=== PATIENT | female | born 1970 | race Caucasian/White ===

== ENCOUNTER 2017-11-19 13:33 | Inpatient (IN) | payer BC ==
[~2017-11-19] VITALS: Ht 165.1 cm; Wt 118.5 kg
[~2017-11-19 13:33] MED LIST: ACETAMINOPHEN-1 EAC1 PO; ALOE VERA1 EACH PO; ALPHA LIPOIC A100 MG PO; Bumex PO; COUMADIN,JANTO7.5 MG PO; DIGESTIVE EN1 TABLET PO; Ecotrin PO; HYDROCHLOROTHIA25 MG PO; HYOSCYAMINE0.375 MG PO; Hydrodiuril,Oretic,E PO; LOVENOX150 MG/1 M SC; NEXIUM20 MG PO; VITAMIN B6 PO; Zantac PO; [UNRECOGNIZED DRUG - OTHER] PO
[2017-11-19 14:58] LABS: HEMATOCRIT 42.7 % (36.0-46.0); HEMOGLOBIN 14.2 G/DL (11.9-15.5); MCH 30.8 PG (29.0-34.0); MCHC 33.3 G/DL (30.0-36.0); MCV 92.6 FL (83-99); PLATELET COUNT 270 K/uL (156-360); RBC DIS.WIDTH-CV 12.9 % (11.8-14.6); RBC DIS.WIDTH-SD 43.6 % (39-53); RED BLOOD COUNT 4.61 M/uL (3.80-5.20); WHITE BLOOD COUNT 12.1 K/uL (4.1-10.2)
[2017-11-19 15:10] LABS: ALBUMIN 3.7 g/dL (3.2-4.8); CHLORIDE 107 mEq/L (99-109); POTASSIUM 4.1 mEq/L (3.7-5.4); SODIUM 139 mEq/L (136-147)
[2017-11-19 15:13] LABS: GLUCOSE 93 mg/dL (70-99)
[2017-11-19 15:15] LABS: TOTAL BILIRUBIN 0.3 mg/dL (0.0-1.0)
[2017-11-19 15:16] LABS: ALKALINE PHOSPHATASE 67 IU/L (3-129); CREATININE 0.8 mg/dL (0.6-1.3); GFR ESTIMATE (CALCULATED) > 59 mL/min/
[2017-11-19 15:17] LABS: UREA NITROGEN (BUN) 16 mg/dL (9-23)
[2017-11-19 15:18] LABS: AST (GOT) 16 IU/L (2-34)
[2017-11-19 15:19] LABS: ALT (GPT) 17 IU/L (3-49)
[2017-11-19 15:20] LABS: LIPASE 12 U/L (1.0-51.0)
[2017-11-19 15:27] LABS: QUANTITATIVE HCG < 4.0 MIU/ML
[2017-11-19 15:27] LABS: APPEARANCE CLEAR ((CLEAR)); BILIRUBIN NEGATIVE; BLOOD NEGATIVE; COLOR STRAW ((YELLOW)); GLUCOSE (STRIP) NEGATIVE; KETONES NEGATIVE; LEUKOCYTES NEGATIVE; NITRITE NEGATIVE; PROTEIN (STRIP) NEGATIVE; SPECIFIC GRAVITY 1.009 (1.000-1.030); UCUL ADDED? NO; UROBILINOGEN 0.2 MG/DL (0.2-1.0)
[2017-11-19 18:34] LABS: PTT 27.7 SEC (25-37)
[2017-11-19] MEDS ORDERED: BUMETANIDE1 MG PO (18:42)
[2017-11-20] VITALS (7 sets, daily range): BP systolic 124–138; BP diastolic 9–90
[2017-11-20 05:38] LABS: HEMATOCRIT 40.2 % (36.0-46.0); HEMOGLOBIN 13.2 G/DL (11.9-15.5); MCH 30.8 PG (29.0-34.0); MCHC 32.8 G/DL (30.0-36.0); MCV 93.7 FL (83-99); PLATELET COUNT 265 K/uL (156-360); RBC DIS.WIDTH-CV 12.8 % (11.8-14.6); RBC DIS.WIDTH-SD 43.8 % (39-53); RED BLOOD COUNT 4.29 M/uL (3.80-5.20); WHITE BLOOD COUNT 12.4 K/uL (4.1-10.2)
[2017-11-20 06:13] LABS: ALBUMIN 3.2 G/DL (3.2-4.8); ALKALINE PHOSPHATASE 54 IU/L (3-129); ALT (GPT) 14 IU/L (3-49); AST (GOT) 13 IU/L (2-34); CHLORIDE 106 MEQ/L (99-109); CREATININE 0.8 MG/DL (0.6-1.3); GFR ESTIMATE (CALCULATED) > 59 mL/min/; POTASSIUM 4.2 MEQ/L (3.7-5.4); SODIUM 138 MEQ/L (136-147); TOTAL BILIRUBIN 0.4 MG/DL (0.0-1.0); TOTAL PROTEIN 5.8 G/DL (6.4-8.3); UREA NITROGEN (BUN) 14 mg/dL (9-23)
[2017-11-20 06:16] LABS: GLUCOSE 148 mg/dL (70-99)
[2017-11-21 04:27] VITALS: BP 132/68
[2017-11-21 07:30] VITALS: BP 117/67
[2017-11-21 12:00] VITALS: BP 115/68
[2017-11-21 15:00] VITALS: BP 125/62
[2017-11-21 19:40] VITALS: BP 143/74
[2017-11-21 21:50] VITALS: BP 138/78
[2017-11-22 00:13] VITALS: BP 133/84
[2017-11-22 03:24] VITALS: BP 127/78
[2017-11-22 07:12] VITALS: BP 125/56
[2017-11-22] MEDS ORDERED: SENNA LAX8.6 MG PO (15:09)
[2017-11-22] MEDS ORDERED: TRAMADOL HCL50 MG PO (15:09)
== END 2017-11-22 16:36 | disposition home or self-care (01) | DRG 354 ==
LOC: EME 13:33 → EDOF 21:10 → 2EAST 21:10 → ENRESERV 21:13 → CANRESERV 21:38 → ENRESERV 21:38 → 4EAST 11-20 00:11 → ENRESERV 11-20 21:39 → 4EAST 11-21 11:09 → ENRESERV 11-21 17:03 → 2EAST 11-21 21:19
PROVIDERS: Physician Assistant Medical; Surgery
PROC: 0WUF0JZ Supplement Abdominal Wall with Synthetic Substitute, Open Approach (ICD-10-PCS; principal; 2017-11-19)
DX: K43.0 Incisional hernia with obstruction, without gangrene (principal); R18.8 Other ascites; E66.01 Morbid (severe) obesity due to excess calories; Z68.41 Body mass index [BMI] 40.0-44.9, adult; I10 Essential (primary) hypertension; R34 Anuria and oliguria; K21.9 Gastro-esophageal reflux disease without esophagitis; R30.0 Dysuria; J45.909 Unspecified asthma, uncomplicated; M19.90 Unspecified osteoarthritis, unspecified site; I25.2 Old myocardial infarction; Z82.3 Family history of stroke; Z83.3 Family history of diabetes mellitus
CPT/HCPCS: 74177; 80053; 81003; 83605; 83690; 84702; 85027; 85610; 85730; 86850; 86900; 86901; 87040; 93005; 99281; 99285; C9113; J0330; J1100; J1170; J1650; J1885; J2250; J2270; J2405; J2543; J2710; J2765; J3010; J7030; S0074

== ENCOUNTER 2018-05-16 17:53 | Observation (INO) | payer BC, OTHER ==
[~2018-05-16] VITALS: Ht 165.1 cm; Wt 119.3 kg
[~2018-05-16 17:53] MED LIST changes: +BUMETANIDE1 MG PO; +SENNA LAX8.6 MG PO; +TRAMADOL HCL50 MG PO
[2018-05-16 18:45] LABS: HEMATOCRIT 46.5 % (36.0-46.0); HEMOGLOBIN 15.4 G/DL (11.9-15.5); MCH 29.7 PG (29.0-34.0); MCHC 33.1 G/DL (30.0-36.0); MCV 89.8 FL (83-99); PLATELET COUNT 316 K/uL (156-360); RBC DIS.WIDTH-CV 13.2 % (11.8-14.6); RBC DIS.WIDTH-SD 43.2 % (39-53); RED BLOOD COUNT 5.18 M/uL (3.80-5.20); WHITE BLOOD COUNT 17.3 K/uL (4.1-10.2)
[2018-05-16 18:58] LABS: ALBUMIN 3.9 g/dL (3.2-4.8); CHLORIDE 104 mEq/L (99-109); POTASSIUM 3.8 mEq/L (3.7-5.4); SODIUM 138 mEq/L (136-147)
[2018-05-16 19:01] LABS: GLUCOSE 133 mg/dL (70-99); TOTAL PROTEIN 7.8 g/dL (6.4-8.3)
[2018-05-16 19:03] LABS: TOTAL BILIRUBIN 0.6 mg/dL (0.0-1.0)
[2018-05-16 19:04] LABS: ALKALINE PHOSPHATASE 88 IU/L (3-129); CREATININE 0.8 mg/dL (0.6-1.3); GFR ESTIMATE (CALCULATED) > 59 mL/min/
[2018-05-16 19:05] LABS: UREA NITROGEN (BUN) 12 mg/dL (9-23)
[2018-05-16 19:06] LABS: AST (GOT) 19 IU/L (2-34)
[2018-05-16 19:07] LABS: ALT (GPT) 27 IU/L (3-49)
[2018-05-16 19:14] LABS: QUANTITATIVE HCG < 4.0 MIU/ML
[2018-05-16 20:07] LABS: TROP-I INTERPRETATION NEGATIVE; TROPONIN-I < 0.01 ng/mL (0.0-0.30)
[2018-05-16] MEDS ORDERED: MOTRIN IB200 MG PO (22:15)
[2018-05-16] MEDS ORDERED: PROAIR HFA8.5 GM IH (22:15)
[2018-05-16 23:38] LABS: HEMATOCRIT 46.3 % (36.0-46.0); HEMOGLOBIN 15.4 G/DL (11.9-15.5); MCH 29.8 PG (29.0-34.0); MCHC 33.3 G/DL (30.0-36.0); MCV 89.7 FL (83-99); PLATELET COUNT 294 K/uL (156-360); RBC DIS.WIDTH-CV 13.1 % (11.8-14.6); RBC DIS.WIDTH-SD 43.5 % (39-53); RED BLOOD COUNT 5.16 M/uL (3.80-5.20); WHITE BLOOD COUNT 18.9 K/uL (4.1-10.2)
[2018-05-17 01:34] VITALS: BP 135/68
[2018-05-17 02:07] LABS: APPEARANCE SL.HAZY ((CLEAR)); BILIRUBIN NEGATIVE; BLOOD LARGE; COLOR AMBER ((YELLOW)); GLUCOSE (STRIP) NEGATIVE; KETONES 20; LEUKOCYTES NEGATIVE; NITRITE NEGATIVE; PROTEIN (STRIP) 30; SPECIFIC GRAVITY 1.049 (1.000-1.030); UROBILINOGEN 0.2 MG/DL (0.2-1.0)
[2018-05-17 02:13] LABS: BACTERIA NONE SEEN /HPF; EPITHELIAL CELLS 1+ /HPF; MUCUS 4+ /LPF; RED BLOOD CELLS TNTC /HPF (0-5); UCUL ADDED? YES; WHITE BLOOD CELLS NONE SEEN /HPF (0-5)
[2018-05-17 05:16] LABS: BASOPHIL (%) 0.2 % (0-1); EOSINOPHIL (%) 0.6 % (0-5); EOSINOPHIL COUNT 0.1 K/uL (0-0.3); HEMATOCRIT 43.9 % (36.0-46.0); HEMOGLOBIN 14.2 G/DL (11.9-15.5); IMMATURE GRANULOCYTE (%) 0.3 % (0.0-0.7); LYMPHOCYTE (%) 5.8 % (15-42); LYMPHOCYTE COUNT 0.7 K/uL (1.0-2.8); MCH 29.2 PG (29.0-34.0); MCHC 32.3 G/DL (30.0-36.0); MCV 90.3 FL (83-99); MONOCYTE (%) 8.8 % (3-12); MONOCYTE COUNT 1.1 K/uL (0-0.8); NEUTROPHIL (%) 84.3 % (45-76); NEUTROPHIL COUNT 10.4 K/uL (1.8-6.4); PLATELET COUNT 303 K/uL (156-360); RBC DIS.WIDTH-CV 13.2 % (11.8-14.6); RBC DIS.WIDTH-SD 43.7 % (39-53); RED BLOOD COUNT 4.86 M/uL (3.80-5.20); WHITE BLOOD COUNT 12.3 K/uL (4.1-10.2)
[2018-05-17 05:21] VITALS: BP 126/70
[2018-05-17 05:36] LABS: CHLORIDE 104 MEQ/L (99-109); CREATININE 0.7 MG/DL (0.6-1.3); GFR ESTIMATE (CALCULATED) > 59 mL/min/; GLUCOSE 126 mg/dL (70-99); POTASSIUM 3.7 MEQ/L (3.7-5.4); SODIUM 138 MEQ/L (136-147); UREA NITROGEN (BUN) 15 mg/dL (9-23)
[2018-05-17 07:30] VITALS: BP 129/89
[2018-05-17 12:13] VITALS: BP 102/70; BP 131/93
[2018-05-17 14:43] VITALS: BP 125/81
[2018-05-17 16:02] LABS: ALBUMIN 3.5 G/DL (3.2-4.8); ALKALINE PHOSPHATASE 60 IU/L (3-129); ALT (GPT) 17 IU/L (3-49); AST (GOT) 15 IU/L (2-34); DIRECT BILIRUBIN 0.1 mg/dL (0.0-0.3); LIPASE 8 U/L (1.0-51.0); TOTAL BILIRUBIN 0.8 MG/DL (0.0-1.0); TOTAL PROTEIN 6.5 G/DL (6.4-8.3)
[2018-05-18 03:15] VITALS: BP 100/58
[2018-05-18 07:56] VITALS: BP 119/56
[2018-05-18] MEDS ORDERED: DOCUSATE SODIU100 MG PO (11:43)
[2018-05-18] MEDS ORDERED: POLYETHYLENE GL17 GM PO (11:43)
[2018-05-18 13:04] VITALS: BP 146/93
== END 2018-05-18 13:20 | disposition home or self-care (01) ==
LOC: EME 17:53 → EDOF 22:57 → 4SOUTH 22:57 → EDOF 22:57 → ENRESERV 22:59 → 4SOUTH 05-17 00:39
PROVIDERS: Hospitalist
DX: R10.9 Unspecified abdominal pain (principal); M96.842 Postprocedural seroma of a musculoskeletal structure following a musculoskeletal system procedure; Y83.8 Other surgical procedures as the cause of abnormal reaction of the patient, or of later complication, without mention of misadventure at the time of the procedure; K56.7 Ileus, unspecified; I10 Essential (primary) hypertension; K21.9 Gastro-esophageal reflux disease without esophagitis; K44.9 Diaphragmatic hernia without obstruction or gangrene; J45.909 Unspecified asthma, uncomplicated; E66.01 Morbid (severe) obesity due to excess calories; M19.90 Unspecified osteoarthritis, unspecified site
CPT/HCPCS: 80048; 80053; 80076; 81003; 82948; 83605; 83690; 84484; 84702; 85025; 85027; 86140; 87040; 87086; 93005; G0378; J1170; J1644; J2405; J2543; J2765; J3010; J7030; J7050

== ENCOUNTER 2018-05-30 22:25 | Emergency (ER) | payer BC, OTHER ==
[~2018-05-30] VITALS: Ht 165.1 cm; Wt 121.9 kg
[~2018-05-30 22:25] MED LIST changes: +DOCUSATE SODIU100 MG PO; +MOTRIN IB200 MG PO; +POLYETHYLENE GL17 GM PO; +PROAIR HFA8.5 GM IH
[2018-05-30 22:51] LABS: HEMATOCRIT 41.4 % (36.0-46.0); HEMOGLOBIN 13.5 G/DL (11.9-15.5); MCH 29.8 PG (29.0-34.0); MCHC 32.6 G/DL (30.0-36.0); MCV 91.4 FL (83-99); PLATELET COUNT 279 K/uL (156-360); RBC DIS.WIDTH-CV 13.3 % (11.8-14.6); RBC DIS.WIDTH-SD 44.7 % (39-53); RED BLOOD COUNT 4.53 M/uL (3.80-5.20); WHITE BLOOD COUNT 11.5 K/uL (4.1-10.2)
[2018-05-30 22:59] LABS: ALBUMIN 3.5 g/dL (3.2-4.8)
[2018-05-30 23:00] LABS: CHLORIDE 107 mEq/L (99-109); POTASSIUM 4.2 mEq/L (3.7-5.4); SODIUM 141 mEq/L (136-147)
[2018-05-30 23:02] LABS: GLUCOSE 136 mg/dL (70-99); TOTAL PROTEIN 6.7 g/dL (6.4-8.3)
[2018-05-30 23:04] LABS: TOTAL BILIRUBIN 0.4 mg/dL (0.0-1.0)
[2018-05-30 23:05] LABS: ALKALINE PHOSPHATASE 57 IU/L (3-129)
[2018-05-30 23:06] LABS: CREATININE 0.8 mg/dL (0.6-1.3); GFR ESTIMATE (CALCULATED) > 59 mL/min/
[2018-05-30 23:07] LABS: AST (GOT) 19 IU/L (2-34); UREA NITROGEN (BUN) 10 mg/dL (9-23)
[2018-05-30 23:09] LABS: ALT (GPT) 28 IU/L (3-49)
[2018-05-30 23:14] LABS: QUANTITATIVE HCG < 4.0 MIU/ML
[2018-05-31 00:33] LABS: APPEARANCE SL.HAZY ((CLEAR)); BILIRUBIN NEGATIVE; BLOOD NEGATIVE; COLOR AMBER ((YELLOW)); GLUCOSE (STRIP) NEGATIVE; KETONES NEGATIVE; LEUKOCYTES SMALL; NITRITE NEGATIVE; PROTEIN (STRIP) 30; SPECIFIC GRAVITY 1.034 (1.000-1.030)
[2018-05-31 00:46] LABS: BACTERIA NONE SEEN /HPF; EPITHELIAL CELLS 1+ /HPF; MUCUS 4+ /LPF; RED BLOOD CELLS 0-5 /HPF (0-5); UCUL ADDED? YES; WHITE BLOOD CELLS 15-20 /HPF (0-5)
[2018-05-31 02:10] LABS: LIPASE 8 U/L (1.0-51.0)
[2018-05-31] MEDS ORDERED: CARAFATE1 GM PO (02:31)
[2018-05-31] MEDS ORDERED: REGLAN10 MG PO (02:31)
[2018-05-31] MEDS ORDERED: ULTRAM50 MG PO (02:31)
[2018-05-31] MEDS ORDERED: CIPRO250 MG PO (02:32)
[2018-05-31 03:33] VITALS: BP 153/107
== END 2018-05-31 03:34 | disposition home or self-care (01) ==
LOC: EME 22:25
DX: R10.11 Right upper quadrant pain (principal); G89.29 Other chronic pain; N39.0 Urinary tract infection, site not specified; K76.0 Fatty (change of) liver, not elsewhere classified; J45.909 Unspecified asthma, uncomplicated; I10 Essential (primary) hypertension; K21.9 Gastro-esophageal reflux disease without esophagitis; Z88.5 Allergy status to narcotic agent
CPT/HCPCS: 76705; 80053; 81003; 83690; 84702; 85027; 87086; 99281; 99284